=== PATIENT | female | born 1990 | race Caucasian/White ===

== ENCOUNTER 2020-11-20 14:59 | Inpatient (IN) ==
[2020-11-20] MEDS ORDERED: OXYTOCIN 30 UNITS/500 ML BAG IV PRN ×2 (15:18→17:23)
[2020-11-20] MEDS ORDERED: LACTATED RINGER'S 1,000 ML IV PRN (15:18)
[2020-11-20 15:40] LABS: Hematocrit (blood only) 38.8 % (37-47); Hemoglobin 13.3 g/dL (12.0-16.0); Mean Corpuscular Hemoglobin 30.7 pg (25-34); Mean Corpuscular Hgb Conc 34.3 g/dL (32-36); Mean Corpuscular Volume 89.6 fL (80-100); Platelet Count 280 K/uL (130-400); RDW Coefficient of Variation 12.8 % (11.5-14.5); RDW Standard Deviation 41.7 fL (36.4-46.3); Red Blood Count 4.33 M/uL (4.2-5.4); White Blood Count 17.69 K/uL (4.8-10.8)
--- NOTE | 2020-11-20 15:45 | Labor Progress Brief Note ---
Date of Service November 20, 2020 Subjective Patient breathing through contractions, very painful, requesting epidural. LOF clear Assessment & Plan (1) Normal labor and delivery: Plan: Patient with SIUP at 39w6d, GBS neg, Labor, anticipate . Attempting to provide epidural; in-house anesthesiologist instructed us to call the backup, who is en route but may or may not be able to provide regional in time given the rapid pace of progress. Patient was 7-8cm only a short time before my check. Admission and Anticipated Discharge Date Admission Date: November 20, 2020 Physical Exam Physical Exam: FHT Cat 1 [place] Q2-3 Cvx 9/100/0 LOF clear Plts resulted 280 Hgn 13.3 Results & Data ([facility]) Vital Signs (Past 12 Hours) Vital Signs Pulse BP Pulse Ox 11/20/20 15:39 72 98 11/20/20 15:35 77 89 L 11/20/20 15:34 75 100 11/20/20 15:29 85 126/56 L 99 11/20/20 15:24 67 99 Coding Level of Care Code None Diagnoses Normal labor and delivery O80
[2020-11-20] MEDS ORDERED: SODIUM CHLORIDE 0.9% INJ 10 ML VIAL ONE ×2 (15:46→16:04)
[2020-11-20] MEDS ORDERED: ePHEDrine sulfate 50 MG/ML AMP ONE ×2 (15:46→16:04)
[2020-11-20] MEDS ORDERED: BUPIVACAINE 0.25% 30 ML VIAL ONE ×2 (15:46→16:04)
[2020-11-20] MEDS ORDERED: fentaNYL citrate 100 MCG/2 ML VIAL ONE ×2 (15:46→16:04)
[2020-11-20] MEDS ORDERED: fentaNYL 2MCG/ML ROPIVACAINE 1.25MG/ML 100 ML BAG EPI ONE ×2 (15:47→16:05)
[2020-11-20] MEDS ORDERED: LIDOCAINE 1% LOCAL 20 ML VIAL ONE (16:10)
--- NOTE | 2020-11-20 16:53 | Delivery Summary ---
Vaginal Delivery Summary Date of Service November 20, 2020 Vaginal Delivery Summary DIAGNOSES: 1. [place] intrauterine at 39w6d gestation. 2. Spontaneous onset of labor. 3. Group B Streptococcus Neg. PROCEDURE: Spontaneous vaginal delivery and repair of 2nd degree laceration. SURGEON: Marlyn Ramey MD. INSTRUCTOR [place]: None. ESTIMATED BLOOD LOSS: 400 mL. COMPLICATIONS: None. PLACENTA: Spontaneous and intact with a 3-vessel cord. DISPOSITION: Stable to labor and delivery. DESCRIPTION: The patient pushed well and brought the head to in DOA position. The infant's head was allowed to deliver with contraction force and no further active pushing, with the perineum protected during this time. There was a single nuchal cord. The right shoulder was anterior. The shoulders and body delivered without any difficulty, and the was placed on the maternal abdomen. It was vigorous and moving all extremities, and making respiratory efforts. The cord was doubly clamped by the MD and then cut by the FOB. The placenta delivered spontaneously and was noted to be intact and with a 3VC. The cervix, vagina and perineum were examined and were found to have a second degree laceration, which was repaired in the usual manner with vicryl suture after infiltration with 1% lidocaine. The fundus was firm and lochia minimal immediately after delivery. [facility] Vaginal Delivery Charge Vaginal Delivery Codes: 33707 global code for the antepartum, delivery, and post-
[2020-11-20] MEDS ORDERED: HYDROCORTISONE ACETATE 25 MG SUPP PR PRN (17:23)
[2020-11-20] MEDS ORDERED: ACETAMINOPHEN 325 MG TAB PO PRN (17:23)
[2020-11-20] MEDS ORDERED: IBUPROFEN 600 MG TAB PO PRN (17:23)
[2020-11-20] MEDS ORDERED: oxyCODONE/ACETAMINOPHEN 5mg/325mg TAB PO PRN (17:23)
[2020-11-20] MEDS ORDERED: SUPERCREAM 0.870% 15 GM JAR EXT PRN (17:23)
[2020-11-20] MEDS ORDERED: BENZOCAINE 20% AER SPR 82.5 GM CAN EXT PRN (17:23)
[2020-11-20] MEDS ORDERED: DIPHTHERIA/TETANUS/PERTUSSIS 0.5 ML SYR/VIAL IM ONE (17:23)
[2020-11-20] MEDS: DOCUSATE SODIUM 100 MG CAP PO SCH (21:21)
[2020-11-21 06:20] LABS: Hematocrit (blood only) 33.9 % (37-47); Hemoglobin 11.3 g/dL (12.0-16.0)
--- NOTE | 2020-11-21 06:41 | Obstetrical Progress Note ---
Date of Service <Karolina SolisDO - Last Filed: 11/21/20 06:41> November 21, 2020 Assessment & Plan <Karolina WillDO - Last Filed: 11/21/20 06:41> (1) Encounter for care and examination after delivery: 30 yo post op day1 from , doing well. -Continue routine post care. -vital signs reviewed and WNL (Tmax 36.7) -Blood Type O+, GBS-, Rubella immune -Encourage ambulation, monitor and control pain with Motrin, tylenol PRN, resume regular diet, monitor lochia -encourage breast feeding -hemoglobin 13.3 (11/20) Day #:: 1 <Marlyn Ramey MD - Last Filed: 11/21/20 07:53> (1) Encounter for care and examination after delivery: Subjective <Karolina WillDO - Last Filed: 11/21/20 06:41> Ambulation: ambulating normally Voiding: no voiding problems Passing Gas:: Yes Diet Tolerance:: regular diet Lochia:: Small Feeding Type:: breast feeding Current Pain Level(1-10): 2 (well controlled on medication) Review of Systems Denies fever, chills, sweats Denies shortness of breath, difficulty breathing, chest pain, palpitations, chest pressure. Denies breast pain. Denies dysuria. Denies headache or changes in vision. Physical Exam <Karolina SolisDO - Last Filed: 11/21/20 06:41> General: Alert, oriented. No acute distress. Cardiac: Regular rate and rhythm, no murmurs/rubs/gallops. Respiratory: Clear to auscultation bilaterally a/p, no wheezes/rales/rhonchi. No increased work of breathing. Symmetrical chest rise. No respiratory distress. Abdomen: Soft, nontender, nondistended. Bowel sounds present. Uterus: Uterine fundus firm, palpable at umbilicus. Lower Extremities: No lower extremity edema or swelling. No deep calf pain. Nando's negative bilaterally.. Results & Data ([facility]) <Karolina WillDO - Last Filed: 11/21/20 06:41> Vital Signs (Past 12 Hours) Vital Signs Temp Pulse Pulse Resp BP BP Pulse Ox 11/21/20 04:00 36.8 C 66 18 98/58 L 97 11/20/20 23:10 36.7 C 94 H 18 95/55 L 96 11/20/20 20:35 103/65 11/20/20 20:00 36.9 C 88 18 93/53 L 98 11/20/20 18:56 71 93/52 L 11/20/20 18:41 63 20 96/53 L Laboratory Results 11/21/20 11/20/20 11/20/20 Range/Units 06:02 15:31 15:24 WBC 17.69 H (4.8-10.8) K/uL RBC 4.33 (4.2-5.4) M/uL Hgb 11.3 L 13.3 (12.0-16.0) g/dL Hct 33.9 L 38.8 (37-47) % MCV 89.6 (80-100) fL MCH 30.7 (25-34) pg MCHC 34.3 (32-36) g/dL RDW Std Deviation 41.7 (36.4-46.3) fL RDW Coeff of Lionel 12.8 (11.5-14.5) % Plt Count 280 (130-400) K/uL MPV 11.0 H (7.4-10.4) fL COVID-19 Eval Order SARS-CoV-2, RNA, NAAT NEGATIVE (NEGATIVE) 11/20/20 Range/Units 15:24 WBC (4.8-10.8) K/uL RBC (4.2-5.4) M/uL Hgb (12.0-16.0) g/dL Hct (37-47) % MCV (80-100) fL MCH (25-34) pg MCHC (32-36) g/dL RDW Std Deviation (36.4-46.3) fL RDW Coeff of Lionel (11.5-14.5) % Plt Count (130-400) K/uL MPV (7.4-10.4) fL COVID-19 Eval Order Covid19 [facility]Now atMILC SARS-CoV-2, RNA, NAAT (NEGATIVE) Medications Administered Current Inpatient Medications Acetaminophen (Acetaminophen 325 Mg Tab) 650 mg PO Q6H PRN PRN Reason: Pain/TOBAR/Fever Stop: 12/20/20 17:22 Benzocaine (Benzocaine 20% Aer Spr 82.5 Gm Can) 1 appln EXT PRN PRN PRN Reason: Perineal Discomfort Stop: 12/20/20 17:22 Last Admin: 11/20/20 22:19 Dose: 1 appln Documented by: Cocaine HCl (Supercream 0.870% 15 Gm Jar) 1 gm EXT BID PRN PRN Reason: Hemorrhoidal Inflammation Stop: 12/04/20 17:22 Docusate Sodium (Docusate Sodium 100 Mg Cap) 100 mg PO DAILY@ [facility] Stop: 12/20/20 20:59 Last Admin: 11/20/20 21:21 Dose: 100 mg Documented by: Hydrocortisone (Hydrocortisone Acetate 25 Mg Supp) 25 mg [place] BID PRN PRN Reason: Hemorrhoidal Inflammation Stop: 12/20/20 17:22 Oxytocin (Pitocin) 30 units in 500 mls @ 333.333 mls/hr IV .Q1H30M PRN; Protocol PRN Reason: Bleeding Control Stop: 12/20/20 15:17 Last Titration: 11/20/20 17:25 Dose: Infused Documented by: Lactated Ringer's (Lr) 1,000 mls @ 125 mls/hr IV .Q8H PRN; Protocol PRN Reason: L&D Protocol Stop: 11/22/20 15:17 Last Infusion: 11/20/20 17:25 Dose: Infused Documented by: Oxytocin (Pitocin) 30 units in 500 mls @ 333.333 mls/hr IV .Q1H30M PRN; Protocol PRN Reason: Bleeding Control Stop: 12/20/20 17:22 Ibuprofen (Ibuprofen 600 Mg Tab) 600 mg PO Q4H PRN PRN Reason: Pain/TOBAR/Cramping/Fever Stop: 12/20/20 17:22 Oxycodone/Acetaminophen (Oxycodone/Acetaminophen 5mg/325mg Tab) 1 tab PO Q4H PRN PRN Reason: Pain not relieved by... Stop: 12/04/20 17:22 Prenat Multivit/Hat Brim [place]/Iron/Folic Ac ( Vitamin 1 Tab) 1 tab PO DAILY@08 [facility] Stop: 12/21/20 07:59 <Marlyn Ramey MD - Last Filed: 11/21/20 07:53> Co-Signing Physician Notes Recovering well PPD1. Desires to stay in-house until PPD2. Resident Activity Tracking <Karolina Solis, DO - Last Filed: 11/21/20 06:41> Resident Involvement: Resident Care Provided Care Provided: OB Delivery
[2020-11-21] MEDS ORDERED: PRENATAL VITAMIN 1 TAB PO SCH (08:00)
[2020-11-21] MEDS: DOCUSATE SODIUM 100 MG CAP PO SCH ×2 (08:15→21:12)
--- NOTE | 2020-11-22 07:13 | Obstetrical Progress Note ---
Date of Service <Karolinanikki Solis DO - Last Filed: 11/22/20 07:13> November 22, 2020 Assessment & Plan <Karolina Solis DO - Last Filed: 11/22/20 07:13> (1) Encounter for care and examination after delivery: 30 yo post op day2 from , doing well. -Continue routine post care. -vital signs reviewed and WNL (Tmax 36.7) -Blood Type O+, GBS-, Rubella immune -Encourage ambulation, monitor and control pain with Motrin, tylenol PRN, resume regular diet, monitor lochia -encourage breast feeding -hemoglobin 13.3-->11.3 (11/21) -discussed d/c Day #:: 2 <Akira Obrien MD, FACOG - Last Filed: 11/22/20 07:54> (1) Encounter for care and examination after delivery: Subjective <Karolina Solis DO - Last Filed: 11/22/20 07:13> Ambulation: ambulating normally Voiding: no voiding problems Passing Gas:: Yes Diet Tolerance:: regular diet Lochia:: Small Feeding Type:: breast feeding Current Pain Level(1-10): 1 (pain well controlled on medication) Review of Systems Patient remarks face swelling, no erythema Denies fever, chills, sweats Denies shortness of breath, difficulty breathing, chest pain, palpitations, chest pressure. Denies breast pain. Denies dysuria. Denies headache or changes in vision. Physical Exam <DO Fidel Adame Last Filed: 11/22/20 07:13> General: Alert, oriented. No acute distress. Cardiac: Regular rate and rhythm, no murmurs/rubs/gallops. Respiratory: Clear to auscultation bilaterally a/p, no wheezes/rales/rhonchi. No increased work of breathing. Symmetrical chest rise. No respiratory distress. Abdomen: Soft, nontender, nondistended. Bowel sounds present. Uterus: Uterine fundus firm, palpable at umbilicus. Lower Extremities: No lower extremity edema or swelling. No deep calf pain. Nando's negative bilaterally.. Results & Data ([facility]) <Karolina Solis DO - Last Filed: 11/22/20 07:13> Vital Signs (Past 12 Hours) Vital Signs Temp Pulse Resp BP 11/22/20 00:45 36.5 C 68 18 96/64 L Medications Administered Current Inpatient Medications Acetaminophen (Acetaminophen 325 Mg Tab) 650 mg PO Q6H PRN PRN Reason: Pain/TOBAR/Fever Stop: 12/20/20 17:22 Benzocaine (Benzocaine 20% Aer Spr 82.5 Gm Can) 1 appln EXT PRN PRN PRN Reason: Perineal Discomfort Stop: 12/20/20 17:22 Last Admin: 11/20/20 22:19 Dose: 1 appln Documented by: Cocaine HCl (Supercream 0.870% 15 Gm Jar) 1 gm EXT BID PRN PRN Reason: Hemorrhoidal Inflammation Stop: 12/04/20 17:22 Docusate Sodium (Docusate Sodium 100 Mg Cap) 100 mg PO DAILY@ [facility] Stop: 12/20/20 20:59 Last Admin: 11/21/20 21:12 Dose: 100 mg Documented by: Hydrocortisone (Hydrocortisone Acetate 25 Mg Supp) 25 mg [place] BID PRN PRN Reason: Hemorrhoidal Inflammation Stop: 12/20/20 17:22 Oxytocin (Pitocin) 30 units in 500 mls @ 333.333 mls/hr IV .Q1H30M PRN; Protocol PRN Reason: Bleeding Control Stop: 12/20/20 15:17 Last Titration: 11/20/20 17:25 Dose: Infused Documented by: Lactated Ringer's (Lr) 1,000 mls @ 125 mls/hr IV .Q8H PRN; Protocol PRN Reason: L&D Protocol Stop: 11/22/20 15:17 Last Infusion: 11/20/20 17:25 Dose: Infused Documented by: Oxytocin (Pitocin) 30 units in 500 mls @ 333.333 mls/hr IV .Q1H30M PRN; Protocol PRN Reason: Bleeding Control Stop: 12/20/20 17:22 Ibuprofen (Ibuprofen 600 Mg Tab) 600 mg PO Q4H PRN PRN Reason: Pain/TOBAR/Cramping/Fever Stop: 12/20/20 17:22 Last Admin: 11/21/20 08:15 Dose: 600 mg Documented by: Oxycodone/Acetaminophen (Oxycodone/Acetaminophen 5mg/325mg Tab) 1 tab PO Q4H PRN PRN Reason: Pain not relieved by... Stop: 12/04/20 17:22 Prenat Multivit/Ray[place]/Iron/Folic Ac ( Vitamin 1 Tab) 1 tab PO DAILY@08 [facility] Stop: 12/21/20 07:59 Last Admin: 11/21/20 08:15 Dose: 1 tab Documented by: <Akira Obrien MD, FACOG - Last Filed: 11/22/20 07:54> Co-Signing Physician Notes Resident Physician Supervision Note: I was present with Dr. Solis during the history and exam. I discussed the case with the resident and agree with the findings and plan as documented in the note. Any exceptions or clarifications are listed here: [None] Documented By: Akira Obrien MD, FACOG Resident Activity Tracking <Karolina Solis DO - Last Filed: 11/22/20 07:13> Resident Involvement: Resident Care Provided Care Provided: OB Delivery
[2020-11-22 12:17] LABS: Hemoglobin 11.9 g/dL (12.0-16.0); Mean Corpuscular Hemoglobin 30.7 pg (25-34); Mean Corpuscular Volume 92.8 fL (80-100); Mean Platelet Volume 10.5 fL (7.4-10.4); Platelet Count 242 K/uL (130-400); RDW Coefficient of Variation 13.2 % (11.5-14.5); RDW Standard Deviation 44.5 fL (36.4-46.3); Red Blood Count 3.88 M/uL (4.2-5.4); White Blood Count 14.11 K/uL (4.8-10.8)
[2020-11-22 12:27] LABS: Mean Corpuscular Hgb Conc 33.1 g/dL (32-36)
== END 2020-11-22 13:10 | disposition home or self-care (01) | DRG 807 ==
LOC: OPB 14:59 → 4S1 15:02 → 4S2 19:49

== ENCOUNTER 2024-11-20 20:08 | Inpatient (IN) ==
[2024-11-20] MEDS ORDERED: LIDOCAINE 1% LOCAL 20 ML VIAL INFIL PRN (20:40)
[2024-11-20] MEDS ORDERED: OXYTOCIN 30 UNITS/NSS 30 UNITS/500 ML BAG IV PRN (20:40)
[2024-11-20] MEDS ORDERED: LACTATED RINGER'S 1,000 ML IV PRN (20:40)
[2024-11-20 21:06] LABS: Hematocrit (blood only) 38.2 % (37.0-47.0); Hemoglobin 12.9 g/dl (12.0-16.0); Mean Corpuscular Hemoglobin 30.1 pg (25.0-34.0); Mean Corpuscular Volume 89.0 fL (80.0-100.0); Platelet Count 205 K/uL (130-400); RDW Standard Deviation 43.9 fL (36.4-46.3); Red Blood Count 4.29 M/uL (4.20-5.40); White Blood Count 18.94 K/ul (4.8-10.8)
[2024-11-20] MEDS: OXYTOCIN 30 UNITS/NSS 30 UNITS/500 ML BAG IV PRN (22:21)
--- NOTE | 2024-11-20 22:27 | Delivery Summary ---
Vaginal Delivery Summary Date of Service November 20, 2024 Vaginal Delivery Summary DIAGNOSES: 1. [place] intrauterine at 40w2d gestation. 2. Spontaneous onset of labor. 3. Group B Streptococcus Neg. PROCEDURE: Spontaneous vaginal delivery. SURGEON: Marlyn Ramey MD. MERCERIZER MACHINE OPERATOR: None. ESTIMATED BLOOD LOSS: 128 mL. COMPLICATIONS: None. PLACENTA: Spontaneous and intact with a 3-vessel cord. DISPOSITION: Stable to labor and delivery. DESCRIPTION: The patient pushed well and brought the head to in OA position. The 's head was allowed to deliver with contraction force and no further active pushing, with the perineum protected during this time. There was no nuchal cord. The left shoulder was anterior. The shoulders and body delivered without any difficulty, and the infant was placed on the maternal abdomen. It was vigorous and moving all extremities, and making respiratory efforts. The cord was doubly clamped by the MD and then cut by the FOB. The placenta delivered spontaneously and was noted to be intact and with a 3VC. The cervix, vagina and perineum were examined and were found to be without defect requiring repair. The fundus was firm and lochia minimal immediately after delivery. [facility] Vaginal Delivery Charge Vaginal Delivery Codes: 14412 global code for the antepartum, delivery, and post-
[2024-11-20] MEDS ORDERED: BENZOCAINE 20% SPRY 85 APPLN/85 GM CAN EXT PRN (22:36)
[2024-11-20] MEDS ORDERED: HYDROCORTISONE ACETATE 25 MG SUPP PR PRN (22:36)
[2024-11-20] MEDS ORDERED: DIPHTHER/TETAN/PERTUS Vaccine (Tdap, Adol/Adult) 0.5mL IM ONE (22:36)
[2024-11-20] MEDS: IBUPROFEN 600 MG TAB PO PRN (23:41)
[2024-11-21] MEDS: ACETAMINOPHEN 325 MG TAB PO PRN (02:27)
--- NOTE | 2024-11-21 05:49 | Obstetrical Progress Note ---
Date of Service November 21, 2024 Assessment & Plan (1) care and examination: Plan: Patient is currently stable. Patient desires to leave tomorrow due to being concerned about her bleeding and the circumcision of baby which will happen later this afternoon. Will continue to monitor. Plan to dc tomorrow. Admission and Anticipated Discharge Date Admission Date: November 20, 2024 Supervising Physician Co-Signing Physician Notes Resident Physician Supervision Note: I interviewed and examined the patient. Discussed with Dr. Gant and agree with findings and plan as documented in the note. Any exceptions or clarifications are listed here: [ ] Documented By: Marlyn Ramey MD, FACOG Subjective 34yo post- day 1 s/p [] Ambulation: ambulating normally Voiding: no voiding problems Passing Gas:: Only burping Diet Tolerance:: regular diet Feeding Type:: trying to breast feeding Current Pain Level:5/10 when feeding, has a crampy pain Resting comfortably this AM in NAD. Patient admits that she is still bleeding. Did not see if she had any blood clots. Denies fevers/chills, TOBAR, CP/palp, SOB/cough/wheezing, N/V, LE pain, breast pain/dschrg, UTI Sx. Review of Systems Review of Systems: as per subjective HPI Physical Exam Constitutional: WD/WN, vitals as above Respiratory: normal respiratory effort, lungs clear to auscultation Cardiovascular: RRR, no murmur, no edema Extremities: no calf tenderness and no edema Gastrointestinal (Abdomen): Percussion/Palpation: abdomen soft; abdomen nontender Skin: no rashes, warm and dry Psychiatric: Eye Contact: good eye contact Speech: normal rate/rhythm/volume of speech Thought Process: linear/logical thought process Genitourinary: uterus was firm and 2cm above umbilicus Results & Data Vital Signs (Past 12 Hours) Vital Signs Temp Pulse Pulse Resp BP BP Pulse Ox 11/21/24 03:27 36.7 C 84 15 95/62 L 98 11/21/24 00:50 36.9 C 105 H 18 103/69 98 11/21/24 00:38 87 107/59 L 11/21/24 00:35 18 11/21/24 00:35 109 H 97/58 L 11/21/24 00:20 110 H 102/65 11/21/24 00:05 18 11/21/24 00:05 76 100/57 L 11/20/24 23:50 85 97/56 L 11/20/24 23:35 18 11/20/24 23:35 96 H 97/55 L 11/20/24 23:20 80 102/59 L 11/20/24 23:05 18 11/20/24 23:05 85 103/60 11/20/24 22:50 18 11/20/24 22:50 76 104/59 L 11/20/24 22:35 18 11/20/24 22:35 153 H 115/81 11/20/24 22:26 76 97 11/20/24 22:21 80 97 11/20/24 22:18 102 H 89 L 11/20/24 22:16 80 99 11/20/24 22:11 74 99 11/20/24 22:06 78 98 11/20/24 22:01 68 99 11/20/24 21:56 70 99 11/20/24 21:18 18 11/20/24 21:18 36.8 C 18 11/20/24 20:26 81 105/61 11/20/24 20:18 18 11/20/24 20:18 36.8 C 18 11/20/24 20:16 18 O2 Del Method 11/21/24 03:27 Room Air 11/21/24 00:50 Room Air 11/21/24 00:38 11/21/24 00:35 11/21/24 00:35 11/21/24 00:20 11/21/24 00:05 11/21/24 00:05 11/20/24 23:50 11/20/24 23:35 11/20/24 23:35 11/20/24 23:20 11/20/24 23:05 11/20/24 23:05 11/20/24 22:50 11/20/24 22:50 11/20/24 22:35 11/20/24 22:35 11/20/24 22:26 11/20/24 22:21 11/20/24 22:18 11/20/24 22:16 11/20/24 22:11 11/20/24 22:06 11/20/24 22:01 11/20/24 21:56 11/20/24 21:18 11/20/24 21:18 11/20/24 20:26 11/20/24 20:18 11/20/24 20:18 11/20/24 20:16 Laboratory Results 11/20/24 Range/Units 20:52 WBC 18.94 H (4.8-10.8) K/ul RBC 4.29 (4.20-5.40) M/uL Hgb 12.9 (12.0-16.0) g/dl Hct 38.2 (37.0-47.0) % MCV 89.0 (80.0-100.0) fL MCH 30.1 (25.0-34.0) pg MCHC 33.8 (32.0-36.0) g/dL RDW Std Deviation 43.9 (36.4-46.3) fL RDW Coeff of Lionel 13.4 (11.5-14.5) % Plt Count 205 (130-400) K/uL MPV 11.0 (9.4-12.4) fL Treponema pallidum Ab Negative (Negative)
[2024-11-21] MEDS: PRENATAL VITAMIN 1 TAB PO SCH (08:51)
[2024-11-21] MEDS: DOCUSATE SODIUM 100 MG CAP PO SCH (08:51)
[2024-11-21 09:00] LABS: Hematocrit (blood only) 33.4 % (37.0-47.0); Hemoglobin 11.3 g/dl (12.0-16.0); Mean Corpuscular Hemoglobin 30.5 pg (25.0-34.0); Mean Corpuscular Volume 90.3 fL (80.0-100.0); Platelet Count 195 K/uL (130-400); RDW Standard Deviation 44.5 fL (36.4-46.3); Red Blood Count 3.70 M/uL (4.20-5.40); White Blood Count 20.01 K/ul (4.8-10.8)
[2024-11-21 09:34] VITALS: RESP 16
[2024-11-22 07:55] LABS: Hematocrit (blood only) 33.9 % (37.0-47.0); Hemoglobin 11.5 g/dl (12.0-16.0)
[2024-11-22 08:59] VITALS: BP 100/65; PULSE 65; TEMP 97.9; O2SAT 98
--- NOTE | 2024-11-22 10:45 | Obstetrical Progress Note ---
Date of Service November 22, 2024 Assessment & Plan (1) care and examination: Plan stable doing well. ready for dc home, instructions reviewed. f/u 6 wk pp check. breast, rhpos, ri. Subjective Ambulation: ambulating normally Voiding: no voiding problems Diet Tolerance:: regular diet Lochia:: Small Feeding Type:: breast feeding no concerns Physical Exam Constitutional WD/WN, vitals as above Respiratory normal respiratory effort, lungs clear to auscultation Cardiovascular Rate/Rhythm: regular rate and regular rhythm Gastrointestinal (Abdomen) Inspection/Auscultation: abdomen normal to inspection Percussion/Palpation: abdomen soft fundus firm 2 cm below umbilicus Musculoskeletal nt calves no edema Neurologic grossly normal Psychiatric A+Ox3, euthymic affect Results & Data Vital Signs (Past 12 Hours) Vital Signs Temp Pulse Resp BP Pulse Ox O2 Del Method 11/22/24 10:36 97.9 F 65 16 100/65 98 11/22/24 08:15 97.9 F 65 16 100/65 98 Room Air 11/21/24 22:53 97.7 F 63 16 101/61 96 Room Air
== END 2024-11-22 13:13 | disposition home or self-care (01) | DRG 807 ==
LOC: OPB 20:08 → 4S1 20:12 → 4E2 11-21 00:59